=== PATIENT | female | born 1930 | race Caucasian/White ===

== ENCOUNTER → 2016-06-04 | Outpatient (CLI) | payer MEDICARE, BC ==
[~2016-06-04] MED LIST: AMLO2.5T PO; ASPI-558 PO; BENA10TA3 PO; CITA10TA7 PO; DOCU-168 PO; DONE10TA30 PO; ENOX40DI SQ; LORA0.5T2 PO; LORA0.5T86 PO; MAGN400O4 PO; MEMA28CA PO; POLY17PO18 PO; TRAM50TA53 PO; [UNRECOGNIZED DRUG - CODE] TOP
[2016-06-04 07:02] LABS: BASOPHILS % (AUTO) 0.3 % (0-2); EOSINOPHILS # (AUTO) 0.3 T/MM3 (0-0.5); EOSINOPHILS % (AUTO) 4.6 % (0-4); HCT - HEMATOCRIT 26.2 % (36-46); HGB - HEMOGLOBIN 7.1 GM/DL (12-16); LYMPHOCYTES # (AUTO) 2.4 T/MM3 (1-4.8); LYMPHOCYTES % (AUTO) 39.2 % (23-45); MEAN CORPUSCULAR HGB CONC(MCHC 27.1 GM/DL (31-37); MEAN CORPUSCULAR VOLUME 70.2 UM3 (80-100); MEAN PLATELET VOLUME 8.5 UM3 (9.4-12.4); MONOCYTES # (AUTO) 0.6 T/MM3 (0-0.8); MONOCYTES % (AUTO) 9.2 % (0-9.0); NEUTROPHILS #(AUTO)-ABSOLUTE 2.9 T/MM3 (1.8-7.7); NEUTROPHILS % (AUTO) 46.7 % (33-66); RED BLOOD COUNT 3.73 M/MM3 (4.00-5.20); WBC - WHITE BLOOD COUNT 6.1 T/MM3 (4.5-11.0)
[2016-06-04 07:10] LABS: ANION GAP 11 MEQ/L (5-15); BUN/CREATININE RATIO 20 RATIO (6-26); CALCIUM 9.1 MG/DL (8.4-10.2); CHLORIDE 106 MEQ/L (98-107); CO2 - CARBON DIOXIDE 28 MEQ/L (22-30); CREATININE 0.7 MG/DL (0.7-1.2); GLOMERULAR FILTRATION RATE 79; GLUCOSE 95 MG/DL (65-110); SODIUM 145 MEQ/L (134-144)
== END ==
LOC: LABNH.PM 02:10
PROVIDERS: ATTEND Nurse Practitioner Adult Health
DX: I10 Essential (primary) hypertension (principal)
CPT/HCPCS: 36415; 80048; 85025; P9604

== ENCOUNTER → 2016-06-06 | Outpatient (CLI) | payer MEDICARE, BC ==
--- NOTE | 2016-06-06 14:42 | STEVAL ---
Eval Subjective and History Date/Time of Eval DATE: 06/06/16 TIME: 14:26 Medical Diagnosis Other dysphagia (R13.19) Treatment Order: Assessment Orientations: Alert (confused) Primary Complaint: other dysphagia Pain: No Date of Onset of Primary Com: 06/05/16 Patient's Goals: Pt wanted to go home. Significant Past Medical Hx: Pt referred for modified barium swallow study secondary to unspecified dysphagia. PMH: hip fx 12/10/15, DNR status, HTN, anemia, PRD, hypercholesterolemia, IBS, depression, dementia, aortic valve stenosis, carotid artery stenosis. Medical History Form Reviewed: Yes Residence Type: [facility] ([facility] Lives With: Prior Functional Status: No information provided Current Functional Status: Functional swallow for soft foods/regular liquids. Education Subject: Treatment Plan Person(s) Educated: Patient Instruction Understanding Demo: Education unsuccessful Education Comment [employer] educated patient on reasoning for evaluation. Patient was agreeable to evaluation. She did not demonstrate understanding of assessment. Subjective and History Comment: Pt was alert and confused, mildly agitated but cooperative. Modified Barium Swallow Lateral View Oral Phase : Lateral View Food Presentation: Thin Liquid via Spoon, Thin Liquid via Cup, Solid- Kun Cracker, Syrup liquid via spoon, Pudding via spoon Number Presentations Lat View: 3 Labial Closure: No Impairment (WFL) Bolus Formation Pooling L/R: No Impairment (WFL) Bolus Formation Under Tongue: No Impairment (WFL) Bolus Formation Scattered Loss: No Impairment (WFL) Mastication Rotary Chew: Mild Impairment Mastication Laterization: No Impairment (WFL) A/P Lingual Propulsion Spills: Minimal Impairment (thin and honey consistencies) A/P Lingual Propulsion Delay: No Impairment (WFL) Lingual Movement: Minimal Impairment Residue Clearing: No Impairment (WFL) Premature Swallow: No Impairment (WFL) Other Oral Phase Observations: Functional oral stage for pt's age. Mildly reduced mastication. Timely swallow with no significant residue. Mildly loss of thin and honey thick liquids from lips. Swallow Response Delay: No Impairment (WFL) Base of Tongue: No Impairment (WFL) Epiglottic Coverage: Minimal Impairment Laryngeal Elevation: No Impairment (WFL) Vallecular Retention Clearing: No Impairment (WFL) Pharyn.Wall Residue Clearing: No Impairment (WFL) Pyriform Sinus Clearing: No Impairment (WFL) Comments Pt cleared all consistencies from pharynx independently. Other Pharyngeal Phase Observ.: WFL A/P Test Performed in sitting A/P View Food Presentation: Thin Liquid via Straw, Pureed Food- Pudding, Solid - Kun Cracker A/P View Vocal Cord Function: Good A/P View Other Observations: WFL Evaluation Start Time: 13:55 Evaluation Stop Time: 14:20 Assessment/Plan of Care Speech Therapy Impressions: Functional oral stage for pt's age. Mildly reduced mastication. Timely swallow with no significant residue. Mildly loss of thin and honey thick liquids from lips. No aspiration or laryngeal penetration. Pharynx cleared on all consistencies with no residue. AP view showed normal movement of thin, pudding and solid consistencies through pharynx and esophagus. Evaluation with recommendation for soft diet/chopped meat and regular liquids. Follow up with [facility] [employer] at halfway. ST Treatment Plan: Evaluation Only ST Treatment Plan Frequency: N/A Treatment Plan Duration: N/A Recommended Diet: Soft diet/chopped meat and regular liquids Date of Visit 06/06/16 Time Visit Began: 13:55 Time Visit Ended: 14:20 ST Assess/Plan of Care: ST Treatment Charge: MBSS Minutes of Individual Therapy: 25 GCODE Swallowing: G8996 - current Severity Modifier: CI - 1-19% Swallowing: G8997 - goal Severity Modifier: CI - 1-19% Swallowing: G8998 - d/c Severity Modifier: CI - 1-19% FATIMAH GARCIA MS CCC-[employer] Jun 06, 2016 14:29
--- NOTE | 2016-06-06 15:16 | DI ---
Indication:ITS.REASON: R13.19 DYSPHAGIA Procedure:MODIFIED BAR. SWALLOW STUDY MODIFIED BAR. SWALLOW STUDY: Videofluoroscopy was performed in conjunction with a employment representative from speech pathology and a separate report and recommendations will be provided. Varying gradations of barium from thin to solid were administered. There was no aspiration noted with any of the consistencies. On the AP view the bolus showed no obvious preference for either side. Impression: No aspiration seen. Please see the speech pathology report for additional details and recommendations. Fluoroscopy dose: 3.51 mGy (Cumulative air kerma) Rishabh Rosas RPA/NICOLE performed this under my direct supervision. .
== END ==
LOC: IMA 13:26
PROVIDERS: ATTEND Family Medicine
DX: R13.19 Other dysphagia (principal)
CPT/HCPCS: 74230; 92611; G8996; G8997; G8998

== ENCOUNTER → 2016-07-24 | Outpatient (CLI) | payer MEDICARE, BC ==
[2016-07-24 06:33] LABS: ANION GAP 11 MEQ/L (5-15); BUN/CREATININE RATIO 24 RATIO (6-26); CALCIUM 8.9 MG/DL (8.4-10.2); CHLORIDE 107 MEQ/L (98-107); CO2 - CARBON DIOXIDE 29 MEQ/L (22-30); CREATININE 0.7 MG/DL (0.7-1.2); GLOMERULAR FILTRATION RATE 79; GLUCOSE 89 MG/DL (65-110); MAGNESIUM 2.1 MG/DL (1.6-2.3); SODIUM 147 MEQ/L (134-144)
== END ==
LOC: LABNH.PM 00:04
PROVIDERS: ATTEND Internal Medicine Cardiovascular Disease
DX: I10 Essential (primary) hypertension (principal); Z79.899 Other long term (current) drug therapy
CPT/HCPCS: 36415; 80048; 83735